=== PATIENT | female | born 1970 | race Caucasian/White ===

== ENCOUNTER 2017-09-11 09:07 | Day surgery (SDC) | payer OTHER ==
[~2017-09-11] VITALS: Ht 165.1 cm; Wt 103.0 kg
[~2017-09-11 09:07] MED LIST: LEXAPRO10 MG PO
[2017-09-11 09:35] VITALS: BP 133/82
[2017-09-11 14:19] VITALS: BP 109/53
[2017-09-11 15:18] VITALS: BP 105/61
[2017-09-11 16:38] VITALS: BP 115/58
[2017-09-11 17:01] VITALS: BP 131/69
== END 2017-09-11 17:30 | disposition home or self-care (01) ==
LOC: SDC 09:07
DX: N83.201 Unspecified ovarian cyst, right side (principal); N80.2 Endometriosis of fallopian tube; N70.11 Chronic salpingitis; N73.6 Female pelvic peritoneal adhesions (postinfective); E28.2 Polycystic ovarian syndrome; F41.9 Anxiety disorder, unspecified; J44.9 Chronic obstructive pulmonary disease, unspecified; E66.09 Other obesity due to excess calories; Z68.37 Body mass index [BMI] 37.0-37.9, adult; Z80.3 Family history of malignant neoplasm of breast; Z80.0 Family history of malignant neoplasm of digestive organs; Z87.891 Personal history of nicotine dependence
CPT/HCPCS: 88304; 88305; J0330; J0690; J1100; J1170; J1644; J1885; J2001; J2405; J2710; J3010; J3475; Q0175